=== PATIENT | male | born 1985 | race Caucasian/White ===

== ENCOUNTER 2017-03-29 13:31 | Emergency (ER) | payer OTHER ==
[~2017-03-29] VITALS: Ht 177.8 cm; Wt 96.4 kg
[2017-03-29 14:04] VITALS: BP 144/78
[2017-03-29] MEDS ORDERED: PERTUSS(ACELL),DIPH,TET VAC/PF 0.5 ML VIAL IM ONE (14:15)
[2017-03-30 04:07] LABS: HEPATITIS Bs ANTIGEN SCREEN P Negative (Negative); HEPATITIS C AB SCREEN 0.1 s/co ratio (0.0-0.9)
== END 2017-03-29 16:40 | disposition home or self-care (01) ==
LOC: EEVIPCON 13:33 → EMS 13:33
DX: S61.231A Puncture wound without foreign body of left index finger without damage to nail, initial encounter (principal); W26.8XXA Contact with other sharp object(s), not elsewhere classified, initial encounter; Y93.89 Activity, other specified; Y92.238 Other place in hospital as the place of occurrence of the external cause; Y99.0 Civilian activity done for income or pay
CPT/HCPCS: 80074; 84460; 90471; 90715; 99284